=== PATIENT | female | born 1945 | race Caucasian/White ===

== ENCOUNTER → 2019-08-06 | Outpatient (CLI) | payer MEDICARE, BC ==
[~2019-08-06] MED LIST: GADOBENATE DIMEGLUMINE 1 ML IV ONE
[2019-08-06 09:37] LABS: BLOOD UREA NITROGEN 20 mg/dL (7-26); BUN/CREATININE RATIO 24 (6-25); CREATININE, SERUM 0.83 mg/dL (0.57-1.11); EST GLOMERULAR FILTRATION RATE > 60 ML/MIN (60-)
--- NOTE | 2019-08-06 13:51 | Diagnostic Imaging Report ---
History: Neck and back pain Comparison studies: None Technique: Cervical: Sagittal T2, T1 and IR, axial T1. Postcontrast axial and sagittal T1 and, axial T2. Thoracic: Sagittal T2, T1 and IR. Postcontrast axial and sagittal T1 and, axial T2. Intravenous contrast: 13 cc of MultiHance Findings: Alignment: Normal cervical lordosis, minimal grade 1 retrolistheses of C5 over C6 (2 mm). Normal thoracic kyphosis. No scoliosis. Cervicomedullary junction: Patent foramen magnum. No Chiari one malformation. Degenerative changes of the atlantoaxial joint without acute abnormality Soft tissues: No paraspinal T2 hyperintense inflammatory changes. 1 cm cyst at the left kidney interpolar region. Spinal cord: Normal from the foramen magnum to the tip of the conus at T12-L1 Vertebrae: Normal in height and signal intensity. No acute fractures, infection or neoplasm. Mild chronic wedge deformity of L1 vertebral body partially visualized. Degenerative changes: Cervical spine: C2-C3: Disc degeneration with loss of T2 signal. Small central disc osteophyte complex with patent canal and foramina C3-C4: Disc degeneration with loss of T2 signal. Left uncinate process hypertrophy and facet hypertrophy results in mild left foraminal narrowing. Patent canal and right neural foramen. C4-C5: Disc degeneration with loss of T2 signal. Diffuse disc osteophyte complex, bilateral uncinate process hypertrophy and ligamentum flavum thickening results in moderate central canal stenosis and moderate bilateral foraminal narrowing, more prominent on the right C5-C6: Disc degeneration with loss of T2 signal. Diffuse disc osteophyte complex, bilateral uncinate process hypertrophy and ligamentum flavum thickening results in moderate canal stenosis with mild impression on the posterior cord, moderate right and mild left foraminal narrowing C6-C7: Disc degeneration with loss of T2 signal is disc osteophyte complex, bilateral uncinate process hypertrophy, facet hypertrophy and ligamentum flavum thickening results in moderate canal stenosis and mild bilateral foraminal narrowing C7-T1: Patent canal and foramina Thoracic spine: 1. Diffuse disc degeneration with loss of T2 signal throughout the thoracic spine. 2. At T5-6, with right central small disc protrusion without canal stenosis or foraminal narrowing. 3. At T6-7, left central small disc protrusion without canal stenosis or foraminal narrowing. 4. At T9-10, small central disc protrusion without canal stenosis or foraminal narrowing. 5. At T11-12, left central small disc protrusion without canal stenosis or foraminal narrowing. 6. No canal stenosis or foraminal narrowing at the thoracic spine Mildly enhancing right T9 costovertebral joint, likely related to inflammatory changes. No other abnormal enhancement at the cervical or thoracic spine IMPRESSION: 1. Moderate degenerative canal stenosis at C4-5, C5-6 and C6-7. 2. Moderate degenerative foraminal narrowing at C4-5 bilaterally and C5-6 on the right. 3. Mild disc degeneration throughout the thoracic spine without canal stenosis or foraminal narrowing. 4. No signal intensity changes of the spinal cord. 5. T9 right costovertebral joint inflammatory changes. Signed by: DR Anshul Mccall M.D. on 08/06/2019 1:48 PM
== END ==
LOC: MRI 08:51
PROVIDERS: ATTEND Internal Medicine Cardiovascular Disease
DX: M47.812 Spondylosis without myelopathy or radiculopathy, cervical region (principal); M47.814 Spondylosis without myelopathy or radiculopathy, thoracic region
CPT/HCPCS: 36415; 72156; 72157; 82565; 84520; A9577

== ENCOUNTER 2019-12-24 12:52 | Observation (INO) | payer MEDICARE, BC ==
[~2019-12-24] VITALS: Ht 167.6 cm; Wt 64.4 kg
[2019-12-24 13:45] LABS: BASOPHILS # (AUTO) 0.1 (0.0-0.1); BASOPHILS % 0.6 % (0.0-1.0); EOSINOPHILS % 0.2 % (0.0-6.0); LYMPHOCYTES # (AUTO) 0.8 (1.0-3.2); LYMPHOCYTES % 8.9 % (18.0-39.1); MEAN CORPUSCULAR HEMOGLOBIN 19.7 pg (28-32); MEAN CORPUSCULAR HGB CONC 27.1 g/dL (31-35); MEAN CORPUSCULAR VOLUME 72.7 fL (81-99); MONOCYTES # (AUTO) 0.8 (0.2-0.8); MONOCYTES % 8.7 % (4.4-11.3); NEUTROPHILS # (AUTO) 7.3 (2.1-6.9); NEUTROPHILS % 80.9 % (38.7-80.0); PLATELET COUNT 232 x10e3/uL (140-360); RED BLOOD COUNT 3.15 x10e6/uL (3.6-5.1); RED CELL DISTRIBUTION WIDTH 22.5 % (11.7-14.4)
[2019-12-24 13:52] LABS: HEMATOCRIT 22.9 % (34.2-44.1); HEMOGLOBIN 6.2 g/dL (12.0-16.0)
[2019-12-24] MEDS ORDERED: SODIUM CHLORIDE 0.9% 250ML 250 ML IV ONE (14:00)
[2019-12-24 14:06] LABS: ALBUMIN 4.1 g/dL (3.5-5.0); ALBUMIN/GLOBULIN RATIO 1.8 (0.8-2.0); CALCIUM 8.4 mg/dL (8.4-10.2); CREATININE, SERUM 0.91 mg/dL (0.57-1.11)
--- NOTE | 2019-12-24 14:07 | Emergency Department Note ---
History of Present Illnes History of Present Illness Chief Complaint: General Medicine Complaints History of Present Illness This is a 74 year old female . Chief Complaint Comment C/O OF DIZZINESS AND WEAKNESS SINCE SEPTEMBER. LAB WORK CAME BACK WITH LOW HGB AND SHE WAS CALLED AND TOLD TO GO TO E.R. PATIENT IS ALSO ON BLOOD THINNER. SHE IS PALE. DENIES ANY CHEST PAIN OR SHORTNESS OF BREATH. Historian: Patient Arrival Mode: Car Additional Treatment SUPERVISOR FILES: NONE Past Medical/Family History Physician Review I have reviewed the patient's past medical and family history. Any updates have been documented here. Past Medical History Recent Fever: No Clinical Suspicion of Infectio: No New/Unexplained Change in Ment: No Past Medical History: Hypertension, Hyperlipedemia Other Surgery: BILATERAL LEG STENTS RIGHT HIP REPLACEMENT Physical Exam Related Data Allergies: Coded Allergies: No Known Allergies (Unverified , 12/24/19) Triage Vital Signs Vital Signs Date Time Temp Pulse Resp B/P (MAP) Pulse Ox O2 Delivery O2 Flow Rate FiO2 12/24/19 13:06 98.2 100 18 112/49 100 Room Air Physical Exam CONSTITUTIONAL HENT EYES NECK PULMONARY CARDIOVASCULAR GASTROINTESTINAL GENITOURINARY SKIN MUSCULOSKELETAL NEUROLOGICAL PSYCHOLOGICAL Results Laboratory Result Diagram: 12/24/19 1327 Laboratory Laboratory Tests Test 12/24/19 13:27 White Blood Count 9.06 x10e3/uL (4.8-10.8) Red Blood Count 3.15 x10e6/uL (3.6-5.1) Hemoglobin 6.2 g/dL (12.0-16.0) Hematocrit 22.9 % (34.2-44.1) Mean Corpuscular Volume 72.7 fL (81-99) Mean Corpuscular Hemoglobin 19.7 pg (28-32) Mean Corpuscular Hemoglobin Concent 27.1 g/dL (31-35) Red Cell Distribution Width 22.5 % (11.7-14.4) Platelet Count 232 x10e3/uL (140-360) Neutrophils (%) (Auto) 80.9 % (38.7-80.0) Lymphocytes (%) (Auto) 8.9 % (18.0-39.1) Monocytes (%) (Auto) 8.7 % (4.4-11.3) Eosinophils (%) (Auto) 0.2 % (0.0-6.0) Basophils (%) (Auto) 0.6 % (0.0-1.0) Neutrophils # (Auto) 7.3 (2.1-6.9) Lymphocytes # (Auto) 0.8 (1.0-3.2) Monocytes # (Auto) 0.8 (0.2-0.8) Eosinophils # (Auto) 0.0 (0.0-0.4) Basophils # (Auto) 0.1 (0.0-0.1) Absolute Immature Granulocyte (auto 0.06 x10e3/uL (0-0.1) Assessment & Plan Last Vital Signs Date Time Temp Pulse Resp B/P (MAP) Pulse Ox O2 Delivery O2 Flow Rate FiO2 12/24/19 13:06 98.2 100 18 112/49 100 Room Air NORRIS VELA DO Dec 24, 2019 14:07
--- OUTSIDE RECORDS SUMMARY | 2019-12-24 14:14 | XMS REPORT | Continuity of Care Document ---
Author Author [facility] t Organization [facility] Address [address] [place] [id number] Phone Unavailable Care Team Providers Care Night Worker Name Role Phone KENYETTA DUNLAP Unavailable Payers Payer Name Policy Type Policy Number Effective Date Expiration Date S ource Problems This patient has no known problems. Allergies, Adverse Reactions, Alerts This patient has no known allergies or adverse reactions. Medications This patient has no known medications. Procedures This patient has no known procedures. Results Test Description Test Time Test Comments Results Result Comments Source MRI SPINE CERVICAL WOW 2019-08-06 13:27:00 [place] [address] Patient Name: KALEIGH PAIZ MR #: [id number] : 1945 Age/Sex: 74/F Req #: [id number] Adm Physician: Ordered by: KENYETTA DUNLAP MD Report #: [id number] Location: MRI Room/Bed: Procedure: [id number] MRI/MRI SPINE CERVICAL WOW Exam Date: Exam Time: REPORT STATUS: Signed History: Neck and back pain Comparison studies: None Technique: Cervical: Sagittal T2, T1 and IR, axial T1. Postcontrast axial and sagittal T1 and, axial T2. Thoracic: Sagittal T2, T1 and IR. Postcontrast axial and sagittal T1 and, axial T2. Intravenous contrast: 13 cc of MultiHance Findings: Alignment: Normal cervical lordosis, minimal grade 1 retrolistheses of C5 over C6 (2 mm). Normal thoracic kyphosis. No scoliosis. Cervicomedullary junction: Patent foramen magnum. No Chiari one malformation. Degenerative changes of the atlantoaxial joint without acute abnormality Soft tissues: No paraspinal T2 hyperintense inflammatory changes. 1 cm cyst at the left kidney interpolar region. Spinal cord: Normal from the foramen magnum to the tip of the conus at T12-L1 Vertebrae: Normal in height and signal intensity. No acute fractures, infection or neoplasm. Mild chronic wedge deformity of L1 vertebral body partially visualized. Degenerative changes: Cervical spine: C2- C3: Disc degeneration with loss of T2 signal. Small central disc osteophyte complex with patent canal and foramina C3-C4: Disc degeneration with loss of T2 signal. Left uncinate process hypertrophy and facet hypertrophy results in mild left foraminal narrowing. Patent canal and right neural foramen. C4-C5: Disc degeneration with loss of T2 signal. Diffuse disc osteophyte complex, bilateral uncinate process hypertrophy and ligamentum flavum thickening results in moderate central canal stenosis and moderate bilateral foraminal narrowing, more prominent on the right C5-C6: Disc degeneration with loss of T2 signal. Diffuse disc osteophyte complex, bilateral uncinate process hypertrophy and ligamentum flavum thickening results in moderate canal stenosis with mild impression on the posterior cord, moderate right and mild left foraminal narrowing C6-C7: Disc degeneration with loss of T2 signal is disc osteophyte complex, bilateral uncinate process hypertrophy, facet hypertrophy and ligamentum flavum thickening results in moderate canal stenosis and mild bilateral foraminal narrowing C7-T1: Patent canal and foramina Thoracic spine: 1. Diffuse disc degenerat ion with loss of T2 signal throughout the thoracic spine. 2. At T5-6, with right central small disc protrusion without canal stenosis or foraminal narrowing. 3. At T6-7, left central small disc protrusion without canal stenosis or foraminal narrowing. 4. At T9-10, small central disc protrusion without canal stenosis or foraminal narrowing. 5. At T11-12, left central small disc protrusion without canal stenosis or foraminal narrowing. 6. No canal stenosis or foraminal narrowing at the thoracic spine Mildly enhancing right T9 costovertebral joint, likely related to inflammatory changes. No other abnormal enhancement at the cervical or thoracic spine IMPRESSION: 1. Moderate degenerative canal stenosis at C4-5, C5-6 and C6- 7. 2. Moderate degenerative foraminal narrowing at C4-5 bilaterally and C5-6 on the right. 3. Mild disc degeneration throughout the thoracic spine without canal stenosis or foraminal narrowing. 4. No signal intensity changes of the spinal cord. 5. T9 right costovertebral joint inflammatory changes. Signed by: DR Anshul Mccall M.D. on 08/06/2019 1:48 PM Dictated By: ANSHUL MORALES MD [id number] Transcribed By: MARI on 08/06/19 1348 COPY TO: KENYETTA DUNLAP MD MRI SPINE THORACIC WOW 2019-08-06 13:27:00 [place] [address] Patient Name: KALEIGH PAIZ MR #: [id number] : 1945 Age/Sex: 74/F Req #: [id number] Adm Physician: Ordered by: KENYETTA DUNLAP MD Report #: [id number] Location: MRI Room/Bed: Procedure: [id number] MRI/MRI SPINE THORACIC WOW Exam Date: Exam Time: REPORT STATUS: Signed History: Neck and back pain Comparison studies: None Technique: Cervical: Sagittal T2, T1 and IR, axial T1. Postcontrast axial and sagittal T1 and, axial T2. Thoracic: Sagittal T2, T1 and IR. Postcontrast axial and sagittal T1 and, axial T2. Intravenous contrast: 13 cc of MultiHance Findings: Alignment: Normal cervical lordosis, minimal grade 1 retrolistheses of C5 over C6 (2 mm). Normal thoracic kyphosis. No scoliosis. Cervicomedullary junction: Patent foramen magnum. No Chiari one malformation. Degenerative changes of the atlantoaxial joint without acute abnormality Soft tissues: No paraspinal T2 hyperintense inflammatory changes. 1 cm cyst at the left kidney interpolar region. Spinal cord: Normal from the foramen magnum to the tip of the conus at T12-L1 Vertebrae: Normal in height and signal intensity. No acute fractures, infection or neoplasm. Mild chronic wedge deformity of L1 vertebral body partially visualized. Degenerative changes: Cervical spine: C2- C3: Disc degeneration with loss of T2 signal. Small central disc osteophyte complex with patent canal and foramina C3-C4: Disc degeneration with loss of T2 signal. Left uncinate process hypertrophy and facet hypertrophy results in mild left foraminal narrowing. Patent canal and right neural foramen. C4-C5: Disc degeneration with loss of T2 signal. Diffuse disc osteophyte complex, bilateral uncinate process hypertrophy and ligamentum flavum thickening results in moderate central canal stenosis and moderate bilateral foraminal narrowing, more prominent on the right C5-C6: Disc degeneration with loss of T2 signal. Diffuse disc osteophyte complex, bilateral uncinate process hypertrophy and ligamentum flavum thickening results in moderate canal stenosis with mild impression on the posterior cord, moderate right and mild left foraminal narrowing C6-C7: Disc degeneration with loss of T2 signal is disc osteophyte complex, bilateral uncinate process hypertrophy, facet hypertrophy and ligamentum flavum thickening results in moderate canal stenosis and mild bilateral foraminal narrowing C7-T1: Patent canal and foramina Thoracic spine: 1. Diffuse disc degenerat ion with loss of T2 signal throughout the thoracic spine. 2. At T5-6, with right central small disc protrusion without canal stenosis or foraminal narrowing. 3. At T6-7, left central small disc protrusion without canal stenosis or foraminal narrowing. 4. At T9-10, small central disc protrusion without canal stenosis or foraminal narrowing. 5. At T11-12, left central small disc protrusion without canal stenosis or foraminal narrowing. 6. No canal stenosis or foraminal narrowing at the thoracic spine Mildly enhancing right T9 costovertebral joint, likely related to inflammatory changes. No other abnormal enhancement at the cervical or thoracic spine
--- OUTSIDE RECORDS SUMMARY | 2019-12-24 14:29 | XMS REPORT | Continuity of Care Document ---
Author Author [facility] t Organization [facility] Address [address] [place] [phone] Phone Unavailable Care Team Providers Care College Football Coach Name Role Phone KENYETTA DUNLAP Unavailable Payers [...] Source MRI SPINE CERVICAL WOW 2019-08-06 13:27:00 [place] [address] Patient Name: KALEIGH PAIZ MR #: [id number] : 1945 Age/Sex: 74/F Req #: [id number] Adm Physician: Ordered by: KENYETTA DUNLAP MD Report #: [id number] Location: MRI Room/Bed: Procedure: [id number] MRI/MRI SPINE CERVICAL WOW Exam Date: Exam [...] MD MRI SPINE THORACIC WOW 2019-08-06 13:27:00 [place] [address] Patient Name: KALEIGH PAIZ MR #: [id number] : 1945 Age/Sex: 74/F Req #: [id number] Adm Physician: Ordered by: KENYETTA DUNLAP MD Report #: [id number] Location: MRI Room/Bed: Procedure: [id number] MRI/MRI SPINE THORACIC WOW Exam Date: Exam [...]
[2019-12-24] MEDS ORDERED: ONDANSETRON HCL INJ 2MG/ML 2ML 2 MG/ML VIAL IV PRN (17:00)
[2019-12-24] MEDS ORDERED: ACETAMINOPHEN 325 MG TAB PO PRN (17:00)
[2019-12-24] MEDS ORDERED: HYDRALAZINE HCL 20 MG/ML VIAL IV PRN (17:00)
[2019-12-24 22:52] VITALS: BP 167/61
--- NOTE | 2019-12-24 22:52 | NUR ---
Patient arrived to floor via stretcher.
--- NOTE | 2019-12-24 23:05 | NUR ---
Received report from ER nurse.
[2019-12-25] VITALS (7 sets, daily range): BP systolic 121–167; BP diastolic 58–67
--- NOTE | 2019-12-25 | NUR ---
Patient admit and assessment completed. Patient denies pain or discomfort at this time. IV to left AC dry and intact. Patient received 2 units of blood with no c/o. Continue monitor.
[2019-12-25] MEDS ORDERED: LIPITOR20 MG PO (00:39)
[2019-12-25] MEDS ORDERED: AMLODIPINE BESY10 MG PO (00:40)
[2019-12-25] MEDS ORDERED: CILOSTAZOL50 MG PO (00:40)
[2019-12-25] MEDS ORDERED: DIOVAN160 MG PO (00:41)
[2019-12-25] MEDS ORDERED: ASPIRIN EC81 MG PO (00:42)
--- NOTE | 2019-12-25 04:16 | NUR ---
Patient resting quitly at this time.
[2019-12-25] MEDS ORDERED: PANTOPRAZOLE SOD 40 MG TABEC PO SCH (06:00)
[2019-12-25 06:41] LABS: BASOPHILS # (AUTO) 0.1 (0.0-0.1); BASOPHILS % 0.8 % (0.0-1.0); EOSINOPHILS # (AUTO) 0.1 (0.0-0.4); EOSINOPHILS % 1.7 % (0.0-6.0); HEMATOCRIT 30.9 % (34.2-44.1); HEMOGLOBIN 9.2 g/dL (12.0-16.0); LYMPHOCYTES % 15.4 % (18.0-39.1); MEAN CORPUSCULAR HEMOGLOBIN 22.3 pg (28-32); MEAN CORPUSCULAR HGB CONC 29.8 g/dL (31-35); MONOCYTES # (AUTO) 0.9 (0.2-0.8); MONOCYTES % 12.8 % (4.4-11.3); NEUTROPHILS # (AUTO) 4.6 (2.1-6.9); NEUTROPHILS % 68.8 % (38.7-80.0); PLATELET COUNT 260 x10e3/uL (140-360); RED BLOOD COUNT 4.12 x10e6/uL (3.6-5.1); RED CELL DISTRIBUTION WIDTH 21.6 % (11.7-14.4)
[2019-12-25 06:42] LABS: % IRON SATURATION 5 % (15-50); ALANINE AMINOTRANSFERASE 15 IU/L (0-55); ALBUMIN 4.2 g/dL (3.5-5.0); ALBUMIN/GLOBULIN RATIO 1.8 (0.8-2.0); ALKALINE PHOSPHATASE 43 IU/L (40-150); ANION GAP 17.7 mmol/L (8-16); BLOOD UREA NITROGEN 15 mg/dL (7-26); BUN/CREATININE RATIO 19 (6-25); CALCIUM 8.8 mg/dL (8.4-10.2); CARBON DIOXIDE 18 mmol/L (22-29); CHLORIDE 108 mmol/L (98-107); CREATININE, SERUM 0.81 mg/dL (0.57-1.11); EST GLOMERULAR FILTRATION RATE > 60 ML/MIN (60-); GLUCOSE 92 mg/dL (74-118); IRON 24 ug/dL (50-170); POTASSIUM 3.7 mmol/L (3.5-5.1); SODIUM 140 mmol/L (136-145); TOTAL IRON BINDING CAPACITY 507 ug/dL (261-478); TRANSFERRIN 362 mg/dL (180-382)
--- NOTE | 2019-12-25 07:00 | NUR ---
BEDSIDE SHIFT REPORT RECEIVED FORM THE COIN MACHINE OPERATOR RN. EDUCATED PT ABOUT FALL PRECAUTIONS. PT VERBALIZED UNDERSTANDING. CALL LIGHT WITH IN EASY REACH. INSTRUCTED PT TO USE CALL LIGHT FOR ALL THE NEEDS. BED IS LOW AND LOCKED. SIDE RAILS X2. BED ALARM IS ON. PT DENIES NEEDS AT THIS TIME.
[2019-12-25 07:03] LABS: FERRITIN 4.24 ng/mL (4.63-204.00); THYROID STIMULATING HORMONE 1.432 uIU/mL (0.350-4.940)
[2019-12-25 07:25] LABS: ANISOCYTOSIS MODERATE; HYPOCHROMASIA MODERATE; MICROCYTOSIS MODERATE; OVALOCYTES FEW; PLATELET ESTIMATE ADEQUATE; PLATELET MORPHOLOGY COMMENT FEW LARGE; POLYCHROMASIA FEW; RBC MORPHOLOGY COMMENT ABNORMAL
[2019-12-25] MEDS ORDERED: ASCORBIC ACID500 MG PO (10:14)
[2019-12-25] MEDS ORDERED: PANTOPRAZOLE SO40 MG PO (10:14)
[2019-12-25] MEDS ORDERED: FERROUS SULFAT325 M1 PO (10:14)
[2019-12-25] MEDS ORDERED: DOCUSATE SODIU100 MG PO (10:14)
--- NOTE | 2019-12-25 10:30 | NUR ---
ASSESSMENT: Spiritual concern Pt is worried. Pt states she is concerned about how much her insurance will cover. Pt states she is from [place] and moved here about a year ago. Pt states she lives w/ her daughter and son-in-law. Intervention: Provided calming pastoral presence. Provided information on how to reach jail keeper if needed. Outcome: Pt expressed appreciation for visit. Followed up w/ RAY. [facility] O: [phone]
[2019-12-25] MEDS ORDERED: VALSARTAN 160 MG TAB PO SCH (11:00)
[2019-12-25] MEDS ORDERED: ASPIRIN 81 MG ENTERIC COATED PO SCH (11:00)
[2019-12-25] MEDS ORDERED: CILOSTAZOL 100 MG TAB PO SCH (11:00)
[2019-12-25] MEDS ORDERED: AMLODIPINE BESYLATE 10 MG TAB PO SCH (11:00)
[2019-12-25] MEDS ORDERED: ONDANSETRON HCL 4 MG ORAL DISINTEGRATING TAB PO PRN (11:45)
[2019-12-25 15:02] LABS: HEMATOCRIT 33.3 % (34.2-44.1); HEMOGLOBIN 9.8 g/dL (12.0-16.0)
--- NOTE | 2019-12-25 15:30 | NUR ---
PAGEKarrie DOTSON NP AND REPORTED HGB 9.8. OKAY TO D/C PT PER MAURI ALBRECHT.
--- NOTE | 2019-12-25 15:44 | NUR ---
LIST OF GI DRS GIVEN TO THE PT PER THE DISCHARGE INSTRUCTION. PT DENIED FURTHER NEEDS.
--- NOTE | 2019-12-25 16:20 | NUR ---
PT DISCHARGED HOME SAFELY WITH FAMILY MEMBER. TELE AND IV REMOVED. TIP INTACT. DRESSING APPLIED. RX GIVEN. DISCHARGE INSTRUCTIONS GIVEN AND PT VERBALIZED UNDERSTANDING. PT DENIED FURTHER NEEDS.
--- NOTE | 2019-12-25 17:07 | Consultation ---
DATE OF CONSULTATION: Pulmonary Critical Care Consultation BODY AFTER ALLERGIES: CHIEF COMPLAINT: Dizziness and anemia. HISTORY OF PRESENT ILLNESS: This is a 74-year-old woman. She has a history of some dizziness. She was evaluated by Dr. Rowe in the office and found to have a low blood count of 6.2. She came to the hospital and received packed red blood cells. She now feels better. She has no further dizziness or chest pain. The patient denies any prior melena, nausea, vomiting, or hematochezia. She denies any vaginal bleeding. Her last colonoscopy was 30 years ago. She did have a hysterectomy. PAST SURGICAL HISTORY: 1. Status post tonsillectomy. 2. Status post appendectomy. 3. Status post hysterectomy. PAST MEDICAL HISTORY: 1. Hypertension. 2. Peripheral arterial disease requiring stents. FAMILY HISTORY: Cancer in her brother. SOCIAL HISTORY: The patient is an occasional smoker and occasional drinker. ALLERGIES: THERE ARE NO KNOWN DRUG ALLERGIES. REVIEW OF SYSTEMS: The patient denies any fevers. She has no headache. She does not complain of dyspnea or cough. She has no hemoptysis. She is not complaining of chest pain. She has no nausea or vomiting. She has no melena or hematochezia. She has no leg edema. PHYSICAL EXAMINATION: VITAL SIGNS: The blood pressure is 143/67 and the pulse is 81. The respiratory rate is 16 and saturation is 99%. HEENT: Shows no facial swelling or erythema. LYMPHATIC: Shows no submandibular, cervical, or supraclavicular adenopathy. CARDIAC: Reveals a regular rate and rhythm with normal S1 and S2. LUNGS: Auscultation of lungs reveals clear breath sounds bilaterally. There is no wheezing. ABDOMEN: Soft and nontender. There is no rebound or guarding. EXTREMITIES: Show no leg edema or calf tenderness. There is no cyanosis or clubbing. SKIN: Shows no rashes. NEUROLOGICAL: Shows no focal abnormalities. LABORATORY DATA: Hemoglobin is 9.8. The BUN to creatinine ratio is 15 to 0.81. The sodium is 140 and the potassium is 3.7. The chloride is 108 and the carbon dioxide is 18. The iron is 24 with an iron saturation of 5%. The ferritin is low at 4.24. RADIOGRAPHIC DATA: There is no chest x-ray. IMPRESSION: 1. Anemia secondary to chronic blood loss. 2. Iron deficiency. 3. Hypertension. 4. Peripheral arterial disease. PLAN: 1. The patient feels better after receiving packed red blood cells. She is insistent on going home. 2. I have emphasized the importance of a GI evaluation. She needs a colonoscopy to try and identify the source of her blood loss. I have asked the patient to make an appointment with a methods analyst data processing as soon as possible. 3. Continue prior home medications. MD BOBY Bradley/MODL /[id number]
--- NOTE | 2019-12-26 08:20 | Discharge Summary ---
ADMISSION DIAGNOSES: Anemia, hypertension, hyperlipidemia, PAD with stents. DISCHARGE DIAGNOSES: Anemia, hypertension, hyperlipidemia, PAD with stents plus iron deficiency anemia. HISTORY: Hypertension, hyperlipidemia, PAD with stents in her legs. PAST SURGICAL HISTORY: Right leg surgery, tonsillectomy, hysterectomy, and appendectomy. FAMILY HISTORY: The patient's brother had cancer. The patient's mom and dad had a stroke. SOCIAL HISTORY: The patient admits to occasional alcohol use and smokes one-pack of cigarettes a day. HOSPITAL COURSE: A 74-year-old female admits from primary care office due to anemia. Her hemoglobin in the ER was 6.2. She admits to generalized weakness since September. She was taking iron, but stopped in April since it made her constipated and turned her stools black. Once she stops iron in April, her stools were no longer black. She denies bright red blood per rectum, black stools, abdominal pain, nausea, and vomiting. After getting 2 units of PRBCs, the patient is feeling much better. Her hemoglobin came up to above 9. After speaking with her about possible diagnoses she is not in favor of completing a GI workup since she says she is not having any GI symptoms. She was advised to continue to take her iron. She was also given new prescriptions for Protonix, Colace, and vitamin C. Her TSH was within normal limits. Her iron level was low and her TIBC level was elevated. She will take medications as prescribed and follow up with primary care in 1 to 2 weeks. The patient understands instructions and agrees to plan. Vital signs stable, patient afebrile. Dictated by Ashli Ricci NP MD CURTIS Ashley/MODL /[id number]
[2019-12-26] MEDS ORDERED: ATORVASTATIN 40 MG TAB PO SCH (09:00)
== END 2019-12-25 16:24 | disposition home or self-care (01) ==
LOC: ER 13:00 → INTOOBSV 14:06 → ERHOLD 14:06 → MED/SURG 22:42
PROVIDERS: ADMIT Internal Medicine; ATTEND Internal Medicine
DX: D64.9 Anemia, unspecified (principal); I10 Essential (primary) hypertension; E78.5 Hyperlipidemia, unspecified; I73.9 Peripheral vascular disease, unspecified; Z95.820 Peripheral vascular angioplasty status with implants and grafts; F17.210 Nicotine dependence, cigarettes, uncomplicated; Z11.59 Encounter for screening for other viral diseases
CPT/HCPCS: 36415 ×2; 80053 ×2; 82607; 82728; 82746; 82948; 83036; 83540; 84443; 84466; 85014; 85018; 85025 ×2; 86850; 86900; 86920; 93005; 97116; 97139; 97161; 99284; G0378 ×2; J7050; P9016; S0164; U0002